=== PATIENT | male | born 2000 | race American Indian/Alaskan Native ===

== ENCOUNTER 2021-05-16 18:57 | Emergency (ER) | payer SELFPAY ==
[2021-05-16 20:22] VITALS: BP 117/55
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
== END 2021-05-16 21:05 | disposition home or self-care (01) ==
LOC: ED 18:57
DX: S16.1XXA Strain of muscle, fascia and tendon at neck level, initial encounter (principal); S46.919A Strain of unspecified muscle, fascia and tendon at shoulder and upper arm level, unspecified arm, initial encounter; V89.2XXA Person injured in unspecified motor-vehicle accident, traffic, initial encounter; W22.12XA Striking against or struck by front passenger side automobile airbag, initial encounter; Y93.89 Activity, other specified; Y92.89 Other specified places as the place of occurrence of the external cause; Y99.8 Other external cause status
CPT/HCPCS: 99281